=== PATIENT | male | born 2000 | race African-American/Black ===

== ENCOUNTER 2021-04-14 16:48 | Emergency (ER) | payer SELFPAY ==
[2021-04-14 17:31] LABS: BASO # 0.03 (0.02-0.10); EOS # 0.11 (0.04-0.40); EOS % 1.2 % (0.0-4.0); HEMATOCRIT 39.9 % (36.0-47.0); HEMOGLOBIN 13.3 g/dL (12.5-16.1); LYMPH# 3.04 (1.50-4.00); MEAN CELL VOLUME 81 fl (78-95); MEAN CORPUSCULAR HEMOGLOBIN 27 pg (26-32); MEAN CORPUSCULAR HGB CONC 33 g/dL (33-37); MEAN PLATELET VOLUME 11.7 fl (7.4-10.4); MONO # 1.08 (0.20-0.80); NEU # 4.55 (1.40-6.50); PLATELET COUNT 278 K/mm3 (130-400); RED CELL DISTRIBUTION WIDTH 12.9 % (11.5-14.5); WHITE BLOOD COUNT 8.8 K/mm3 (4.8-10.8)
[2021-04-14 17:42] LABS: POTASSIUM 3.3 mmol/L (3.5-5.1)
[2021-04-14 17:43] LABS: CALCIUM 9.4 mg/dL (8.3-10.5)
[2021-04-14 17:44] LABS: TOTAL PROTEIN 7.1 g/dL (6.4-8.3)
[2021-04-14 17:46] LABS: TOTAL BILIRUBIN 0.6 mg/dL (0.2-1.2)
[2021-04-14 18:37] VITALS: BP 154/92
== END 2021-04-14 18:38 | disposition home or self-care (01) ==
LOC: ED 16:48
PROVIDERS: Nurse Practitioner
DX: K40.90 Unilateral inguinal hernia, without obstruction or gangrene, not specified as recurrent (principal); S39.011A Strain of muscle, fascia and tendon of abdomen, initial encounter; X50.9XXA Other and unspecified overexertion or strenuous movements or postures, initial encounter
CPT/HCPCS: J2405; J3010; J7030; Q9967